=== PATIENT | male | born 1955 | race African-American/Black ===

== ENCOUNTER 2016-12-11 08:19 | Emergency (ER) | payer OTHER ==
[2016-12-11 08:42] LABS: Mean Platelet Volume 6.3 fL (7.4-10.4); Red Blood Cell (RBC) Count 3.93 mill/uL (4.70-6.10); White Blood Cell (WBC) Count 9.4 thou/uL (4.8-10.8)
[2016-12-11 08:55] LABS: Prothrombin Time 29.4 SEC (12.0-14.7)
[2016-12-11 09:00] LABS: Macrocytosis SLIGHT = 6-15 cells (100X) (0-5/hpf); Neutrophil 27 % (42-75); Target Cells SLIGHT = 2-5 cells (100X) (0-1/hpf)
[2016-12-11 09:01] LABS: PTT 154.4 SEC (22.9-36.1)
[2016-12-11 09:04] LABS: ALT (SGPT) 313 U/L (8-55); AST (SGOT) 693 U/L (5-34); Alkaline Phosphatase 120 U/L (40-150); Anion Gap 35 mmol/L (10-20); BUN (Urea Nitrogen) 5 mg/dL (8.4-25.7); Bilirubin, Total 1.4 mg/dL (0.2-1.2); Calc. Creatinine Clearance 0 mL/min (70-130); Calcium 9.3 mg/dL (7.8-10.44); Carbon Dioxide 15 mmol/L (22-29); Chloride 71 mmol/L (98-107); Estimated GFR-MDRD Greater than 90; Globulin 3.9 g/dL (2.4-3.5); Protein, Total 7.6 g/dL (6.0-8.3)
[2016-12-11 09:08] LABS: Troponin I 0.046 ng/mL (< 0.028)
[2016-12-11] MEDS ORDERED: Sodium Bicarb 50 MEQ/50 ML Abboject 8.4% SYRINGE ONE (23:00)
[2016-12-11] MEDS ORDERED: EPINEPHrine 1 MG/10 ML Abboject SYRINGE ONE (23:00)
== END 2016-12-11 08:32 | disposition expired ==
LOC: ERS 08:19
DX: I46.9 Cardiac arrest, cause unspecified (principal); F10.20 Alcohol dependence, uncomplicated; I10 Essential (primary) hypertension; F17.210 Nicotine dependence, cigarettes, uncomplicated; Z79.899 Other long term (current) drug therapy
CPT/HCPCS: 80053; 82553; 84484; 85025; 85610; 85730; 96374; 96375; J0171